=== PATIENT | female | born 1990 | race Caucasian/White ===

== ENCOUNTER 2017-03-07 09:52 | Emergency (ER) | payer SELFPAY ==
[2017-03-07] MEDS ORDERED: NS 1,000 ML IV ONE (10:15)
[2017-03-07] MEDS ORDERED: METOCLOPRAMIDE INJ 10MG/2ML VIAL (J2765) IV ONE (10:30)
[2017-03-07] MEDS: MORPHINE 4 MG/ML 1ML SYRINGE IV PRN ×2 (10:33→10:57)
[2017-03-07 10:47] LABS: BASO % 0.3 % (0.0-1.0); IMMATURE GRANULOCYTE % 0.3 % (0-0); LYMPH % 12.7 % (24.0-44.0); MEAN CORPUSCULAR HGB CONC 35.5 g/dl (32.0-36.5); MEAN CORPUSCULAR VOLUME 98.8 fl (80.0-96.0); MONO # 0.3 10^3/uL (0.0-0.8); MONO % 3.2 % (0.0-5.0); NEUTROPHILS # 6.6 10^3/uL (1.8-7.7); NEUTROPHILS % 83.5 % (36.0-66.0); PLATELET COUNT, AUTOMATED 331 10^3/uL (150-450); RED CELL DISTRIBUTION WIDTH 12.3 % (11.5-14.5); WHITE BLOOD COUNT 7.9 10^3/uL (4.0-10.0)
[2017-03-07 11:07] LABS: ALBUMIN 4.1 GM/DL (3.2-5.2); ALBUMIN/GLOBULIN RATIO 1.37 (1.00-1.93); ALKALINE PHOSPHATASE 62 U/L (45-117); ALT/SGPT 21 U/L (12-78); AMYLASE 40 U/L (25-115); ANION GAP 9 MEQ/L (8-16); AST/SGOT 9 U/L (7-37); BILIRUBIN,DIRECT 0.1 MG/DL (0.0-0.2); BILIRUBIN,TOTAL 0.6 MG/DL (0.2-1.0); BLOOD UREA NITROGEN 11 MG/DL (7-18); CALCIUM LEVEL 8.9 MG/DL (8.5-10.1); CARBON DIOXIDE LEVEL 24 MEQ/L (21-32); CHLORIDE LEVEL 109 MEQ/L (98-107); CREATININE FOR GFR 0.66 MG/DL (0.55-1.02); GLOMERULAR FILTRATION RATE > 60.0 (>60); GLUCOSE, FASTING 101 MG/DL (70-105); POTASSIUM SERUM 3.6 MEQ/L (3.5-5.1); SODIUM LEVEL 142 MEQ/L (136-145); TOTAL PROTEIN 7.1 GM/DL (6.4-8.2)
[2017-03-07] MEDS ORDERED: KETOROLAC 30 MG/ML VIAL (J1885) IV ONE (12:30)
[2017-03-07] MEDS ORDERED: DICYCLOMINE INJ 20MG/2ML (J0500) IM ONE (12:45)
[2017-03-07] MEDS ORDERED: ZOFR4TAB3 PO (13:03)
[2017-03-07] MEDS ORDERED: BENT20TA PO (13:03)
[2017-03-07 13:19] VITALS: BP 140/88
== END 2017-03-07 13:22 | disposition home or self-care (01) ==
LOC: EDBD 09:52 → M ED 09:52
DX: R10.30 Lower abdominal pain, unspecified (principal); E86.0 Dehydration; R11.2 Nausea with vomiting, unspecified; R19.7 Diarrhea, unspecified; Z87.442 Personal history of urinary calculi; Z79.3 Long term (current) use of hormonal contraceptives; Z88.0 Allergy status to penicillin; F17.210 Nicotine dependence, cigarettes, uncomplicated
CPT/HCPCS: 80048; 80076; 81025; 82150; 83605; 83690; 85025; 87086; 96361; 96372; 96374; 96375; 99284; J0500; J2765